=== PATIENT | female | born 1930 | race Caucasian/White ===

== ENCOUNTER 2017-02-13 18:43 | Emergency (ER) | payer MEDICARE, BC ==
[~2017-02-13 18:43] MED LIST: ALBUTEROL17 GM; ALTOCOR40 MG; AMARYL1 MG; ASPIRIN325 MG; BABY ASPIRIN81 MG PO; COLACE100 MG PO; CRANBERRY; CRANBERRY CONC500 MG PO; CRANBERRY1000 MG; CRESTOR5 MG PO; FISH OIL 1,2001 CAP PO; HYOSCYAMINE0.15 MG; IMDUR30 MG PO; LEVEMIR100 U/ML SQ; LEVOTHYROXINE50 MCG PO; LIPITOR40 M1 PO; LISINOPRIL20 MG; LOPRESSOR25 MG/TA2 PO; LOVASTATIN40 MG; MILK OF MA400 MG/5 M PO; MIRALAX17 G1 PO; MIRALAX17 GM PO; NORVASC5 MG; OXYCODONE/APAP PO; PRILOSEC20 MG; PRILOSEC20 MG PO; PRINIVIL20 MG; PRINIVIL40 MG PO; SYNTHROID50 MCG; TRIAMTERENE/HCT1 TAB; UNITHROID PO; VITAMIN C100 MG; VITAMIN C1000 MG; XALATAN2.5 ML; XALATAN2.5 ML BOTH EYES; XALATAN2.5 ML EACH EYE; XARELTO15 MG PO; [UNRECOGNIZED DRUG - OTHER]
[2017-02-13] MEDS ORDERED: AMARYL2 M1 PO (19:21)
[2017-02-13] MEDS ORDERED: MACROBID 100 M100 M1 PO (19:22)
[2017-02-13] MEDS ORDERED: JANUVIA100 M1 PO (19:22)
[2017-02-13] MEDS ORDERED: CRANBERRY200 M1 PO (19:23)
[2017-02-13] MEDS ORDERED: VITAMIN D31000 UNI3 PO (19:23)
[2017-02-13] MEDS ORDERED: ASPIRIN81 M1 PO (19:25)
[2017-02-13] MEDS ORDERED: LANTUS100 UNITS/ SC (19:27)
[2017-02-13] MEDS ORDERED: PENICILLIN V P500 M1 PO (19:40)
[2017-02-13] MEDS ORDERED: TRAMADOL HCL50 M2 PO (19:41)
== END 2017-02-13 19:49 ==
LOC: EDMED 18:43
DX: K04.7 Periapical abscess without sinus (principal); R51 Headache; E11.9 Type 2 diabetes mellitus without complications; Z79.4 Long term (current) use of insulin